=== PATIENT | female | born 1955 | race Caucasian/White ===

== ENCOUNTER 2025-04-10 08:05 | Inpatient (IN) | payer MEDICARE, BC ==
[~2025-04-10] VITALS: Ht 160 cm; Wt 67.7 kg
--- NOTE | 2025-04-10 08:19 | ELECTROCARDIOGRAPH REPORT ---
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
[2025-04-10 08:27] LABS: BASOPHILS % (AUTO) 0.6 % (0-1); EOSINOPHILS % (AUTO) 0 % (0-6); HEMATOCRIT 32.6 % (35.0-45.0); HEMOGLOBIN 10.7 g/dl (12.0-16.0); LYMPHOCYTES # (AUTO) 0.8 X10'3 (1.1-4.8); LYMPHOCYTES % (AUTO) 14.8 % (21-51); MEAN CORPUSCULAR HEMOGLOBIN 29.9 PG (27.0-31.0); MEAN CORPUSCULAR HGB CONC 32.9 g/dL (33.0-36.5); MEAN CORPUSCULAR VOLUME 90.8 FL (78-98); MEAN PLATELET VOLUME 7.6 FL (7.4-10.4); MONOCYTES # (AUTO) 0.8 X10'3 (0-0.9); MONOCYTES % (AUTO) 14.8 % (2-12); NEUTROPHILS # (AUTO) 3.7 X10'3 (1.8-7.7); NEUTROPHILS % (AUTO) 69.8 % (42-75); PLATELET COUNT 406 X10'3 (140-440); RED BLOOD COUNT 3.59 X10'6 (4.20-5.60); RED CELL DISTRIBUTION WIDTH 14.1 % (11.5-14.5); WHITE BLOOD COUNT 5.4 X10'3 (4.5-11.0)
[2025-04-10 08:37] LABS: APTT 30 SECONDS (22-32); INR 1.1 INR
--- NOTE | 2025-04-10 08:38 | Physician Documentation ---
History of Present Illness ~ Chief Complaint: Stroke Alert Stated Complaint: STROKE SYMPTOMS Time Seen by MD: 08:16 HPI 69-year-old female history of remote Hodgkin's lymphoma, breast cancer status post resection, hypothyroidism presenting for blurry vision. She reports feeling generalized achiness and weakness. They are visiting for a wedding from [place]. She went yesterday to urgent care and tested positive for influenza. Throughout the day she started noticing droopiness in her left eye. She then awoke this morning with blurry vision and difficulty speaking. She also reports having shortness of breath over the last month. She was hospitalized in [place] 3 weeks ago where she had echocardiogram performed which she reports was normal Medication Reconciliation Allergies: Coded Allergies: No Known Allergies (Unverified , 04/10/25) Review of Systems Constitutional: Denies: fever Eyes: Reports: blurred vision, double vision Respiratory: Reports: shortness of breath; Denies: cough Physical Exam Vital Signs: Temperature: 98.3, Source: Temporal, Heart Rate: 100, Respiratory Rate: 18, BP: 145/66, Pulse Oximetry: 95, Weight: 56.820 General Appearance Well-appearing no distress resting comfortably in bed HEENT left eyelid droop left lateral nerve palsy Left-sided facial droop Mild dysarthria 5/5 bilateral upper lower extremities Awake alert oriented Visual villegas full to confrontation Pupils PERRLA Normal [id number] no dysmetria 5/5 bilateral upper and lower extremity strength No pronator drift Intact and equal bilateral facial and extremity sensation Negative Romberg Normal gait Well-appearing no distress resting comfortably in bed No JVD Moist mucous membranes Pulmonary clear to auscultation bilaterally Cardiac no murmur Abdomen is soft nontender Lower extremity no edema Awake alert oriented t-PA t-PA given w/in 2hrs?: No Reason t-PA not Given: Medical Contraindication (Considered tPA however she is out of window) Progress Progress Note Consulted with neurology they are recommending admission for MRI Consulted hospitalist Dr. Espinal who agrees with management plan and graciously accept for admission Results/Orders Reviewed/noted all lab results: Yes Results/Orders Orders - SHERRY FLAHERTY MD Monitor (04/10/25 08:11) 2 Large Bore Ivs (04/10/25 08:11) Chest,Single View (04/10/25 08:11) Accucheck (04/10/25 08:11) Ct Stroke Alert (04/10/25 09:41) BMP (04/10/25 08:11) Cta Neck/Head (04/10/25 09:41) [place] Prov.Neuro Consult (04/10/25 08:52) Ringers Solution, Lacted (Lactated Ringe (04/10/25 10:45) Page Hospitalist (04/10/25 10:43) Fill Out Med Reconciliation (04/10/25 10:43) TSH (04/10/25 08:17) Completed Orders - SHERRY FLAHERTY MD Cbc/Diff (04/10/25 08:11) Electrocardiogram (04/10/25 08:11) Chest,Single View (04/10/25 08:11) Ct Stroke Alert (04/10/25 09:41) PTT (04/10/25 08:11) Pt Inr (04/10/25 08:11) Cta Neck/Head (04/10/25 09:41) Vital Signs 04/10/25 04/10/25 04/10/25 04/10/25 08:08 08:18 09:02 09:03 Temp 98.3 Pulse 78 100 112 Resp 18 18 26 26 B/P (MAP) 142/54 145/66 (92) 163/97 Pulse Ox 98 95 93 Laboratory Tests Test 04/10/25 08:17 04/10/25 09:10 White Blood Count 5.4 Red Blood Count 3.59 L Hemoglobin 10.7 L Hematocrit 32.6 L Mean Corpuscular Volume 90.8 Mean Corpuscular Hemoglobin 29.9 Mean Corpuscular Hemoglobin Concent 32.9 L Red Cell Distribution Width 14.1 Platelet Count 406 Mean Platelet Volume 7.6 Neutrophils (%) (Auto) 69.8 Lymphocytes (%) (Auto) 14.8 L Monocytes (%) (Auto) 14.8 H Eosinophils (%) (Auto) 0 Basophils (%) (Auto) 0.6 Neutrophils # (Auto) 3.7 Lymphocytes # (Auto) 0.8 L Monocytes # (Auto) 0.8 Eosinophils # (Auto) 0.0 Basophils # (Auto) 0.0 CBC Comment Prothrombin Time 11.0 INR International Normalized Ratio 1.1 Activated Partial Thromboplast Time 30 Coagulation Comments Sodium Level 136 Potassium Level 3.6 Chloride Level 100 Carbon Dioxide Level 24.9 Anion Gap 11 Blood Urea Nitrogen 13 Creatinine 1.05 H Estimated GFR/1.73 m2 52 BUN/Creatinine Ratio 12.4 Glucose Level 94 Calcium Level 8.1 L Albumin 3.3 L Chemistry Comments Glucometer 102 EKG/XRAY/CT/US/VASC/MRI EKG : Additional Comment EKG independently interpreted by myself time 8:18 a.m. indication CVA normal sinus rhythm rate 100 normal axis normal intervals no ST or T-wave abnormality CT : Impression CT head independently interpreted by myself shows no intracranial hemorrhage Medical Decision Making Differential Dx:Considerations: Include: Baird's Palsey, CVA, Electrolyte imbalance Departure Disposition: ADMITTED INPATIENT Admitted to Inpatient Unit: to hospitalist Impression: Primary Impression: Cerebral infarction Qualified Codes: I63.9 - Cerebral infarction, unspecified Referrals: NO PRIMARY CARE PROVIDER (PCP) Critical Care Note Total Time (mins): 30 Critical Care Note The very real possibility of a deterioration of this patient's condition required the highest level of my preparedness for sudden, emergent intervention. I provided critical care services, which included medication orders, frequent reevaluations of the patient's condition and response to treatment, ordering and reviewing test results, and discussing the case with various consultants. Excludes time spent performing separately billable procedures. The critical care time associated with the care of the patient was 30 minutes in the management of acute CVA requiring consideration of tPA Signature Scribe Signature: na Attestation: SHERRY Barroso MD Apr 10, 2025 08:38
[2025-04-10 08:41] LABS: ALBUMIN 3.3 G/DL (3.4-5.0); ANION GAP 11 (8-16); BLOOD UREA NITROGEN 13 MG/DL (7-18); BUN/CREATININE RATIO 12.4 (10.0-20.0); CALCIUM 8.1 MG/DL (8.5-10.1); CHLORIDE 100 MMOL/L (99-107); CREATININE 1.05 MG/DL (0.40-0.90); GLUCOSE 94 MG/DL (70-104); POTASSIUM 3.6 MMOL/L (3.5-5.1); SODIUM 136 MMOL/L (135-145); TOTAL CARBON DIOXIDE 24.9 MMOL/L (24-32); eCRCL 42 ML/MIN; eGFR 52 ML/MIN
--- NOTE | 2025-04-10 10:01 | RADIOLOGY REPORT ---
CT CT STROKE ALERT INDICATION: Stroke Alert EXAM DATE: 04/10/2025 09:32 AM COMPARISON: None RADIATION DOSE: CTDIvol: 55 mGy, DLP: 1068 mGy*cm PROCEDURE: CT scans of the head were obtained from the vertex to the skull base. Sagittal and coronal reconstructions were provided. All CT scans at this medical facility are performed using dose modulation techniques as appropriate t o a performed exam including the following: Automated exposure control was utilized; adjustment of th e MA and/or KV according to patient size; and use of iterative reconstruction technique. FINDINGS: Left frontal lobe encephalomalacia likely from old infarct. There is sulcal and ventricula r prominence. The brain otherwise shows normal morphology and rodriguez-white matter differentiation, with out intracranial hemorrhage, extra-axial fluid collection, mass effect or acute large vessel infarct. The ventricles are normal in size. The basal cisterns are patent. The skull and visible facial bones are intact. The paranasal sinuses, mastoid air cells and middle ear cavities are well-aerated. The s oft tissues of the scalp are unremarkable. IMPRESSION: Left frontal lobe encephalomalacia likely from old infarct. No acute intracranial abnormality.
--- NOTE | 2025-04-10 10:17 | RADIOLOGY REPORT ---
INDICATION: cva EXAM DATE: 04/10/2025 09:36 AM COMPARISON: None TECHNIQUE: CTA head without and with intravenous contrast. CTA neck with intravenous contrast. 3D image postprocessing was performed on a dedicated workstation and images were used for interpretation and reporting. RADIATION DOSE: Angio: CTDIvol: 25 mGy, DLP: 250 mGy*cm FINDINGS: CTA head: There is normal enhancement of the visualized distal internal carotid, anterior and middle cerebral a rteries. There is a normal anterior communicating artery complex. There are bilateral posterior com municating arteries. The vertebral, basilar, cerebellar and posterior cerebral arteries are within n ormal limits. The early parenchymal enhancement is grossly unremarkable. The visualized intracrania l venous structures are grossly unremarkable. CTA neck: The visualized thoracic aortic arch and proximal great vessels are unremarkable. The left common, in ternal and external carotid arteries are within normal limits. The right common, internal and fountain helper al carotid arteries are within normal limits. The cervical segments of the right and left vertebral arteries are within normal limits. The limited visualized lung apices are clear. The surrounding so ft tissues and osseous structures are otherwise unremarkable. IMPRESSION: No evidence of hemodynamically significant intracranial stenosis, proximal occlusion or aneurysm. No evidence of hemodynamically significant cervical stenosis or dissection. CAROTID STENOSIS REFERENCE Distal internal carotid artery diameter as the denominator for stenosis measurement: MILD = <50% stenosis. MODERATE = 50-69% stenosis. SEVERE = 70-89% stenosis. CRITICAL = 90-99% stenosis. OCCLUDED = 100% stenosis.
[2025-04-10] MEDS ORDERED: magnesium Cl slow-release 64mg tablet PO PRN (11:10)
[2025-04-10] MEDS ORDERED: ondansetron/PF 4mg/2ml inj IV PRN (11:10)
[2025-04-10] MEDS ORDERED: magnesium sulf-water 2g/50mL 50 ML IV PRN (11:10)
[2025-04-10] MEDS ORDERED: potassium Cl 40MEQ/1/2NS 520ml 520 ML IV PRN (11:10)
[2025-04-10] MEDS ORDERED: acetaminophen 325mg tablet PO PRN (11:10)
[2025-04-10] MEDS ORDERED: potassium Cl 20 mEq SR tablet PO PRN ×2 (11:10)
[2025-04-10] MEDS ORDERED: magnesium sulf-water 4G/100mL 100 ML IV PRN (11:10)
[2025-04-10] MEDS: ringers solution, lacted 1,000 ML IV ONE (11:12)
[2025-04-10] MEDS: acetaminophen 325mg tablet PO PRN (11:23)
[2025-04-10 11:29] LABS: THYROID STIMULATING HORMONE 0.22 ulU/ml (0.34-4.50)
[2025-04-10] MEDS: normal saline 1000ml 1,000 ML IV SCH (12:06)
--- NOTE | 2025-04-10 13:09 | RADIOLOGY REPORT ---
CLINICAL INFORMATION: 69 years old, Female; Stroke Alert. TECHNIQUE: Single AP portable chest radiograph was obtained. COMPARISON: None FINDINGS: Lungs: Atelectasis in the lung bases. Mild interstitial opacities in the upper lobes. Possible scarri ng in the medial aspect of the right upper lobe. No dense focal consolidation. Cardiac: Heart size is within normal limits. Pulmonary vasculature: Unremarkable. Mediastinum/savannah: Ovoid calcification along the right side of the mediastinum near the hilar region, possible calcified pleural plaque or calcified lymph node. Bones: No acute osseous abnormality identified. Other: There are surgical clips in the right chest wall and axillary region. IMPRESSION: 1. Interstitial opacities in the upper lobes, may be chronic. No focal consolidation. 2. Possible scarring of the medial aspect of the right upper lobe and along the right side of the med iastinum near the hilar region, possible calcified pleural plaque or calcified lymph node. 3. Additional findings as described above.
--- NOTE | 2025-04-10 13:28 | VASCULAR REPORT ---
Carotid Duplex Date: 04/10/2025 11:25 AM Clinical History: Left-sided facial droop. Comparison: None Technique: Duplex Doppler evaluation of the extracranial carotid and vertebral arteries including col or Doppler and spectral/pulsed waveform analysis was performed. Findings: RIGHT SIDE: The peak systolic velocities are 118 cm/s in the distal CCA and 130 cm/s in the proximal ICA.The ICA/ CCA ratio is 1.10. The external carotid artery is patent with peak systolic velocity of 143 cm/s proximally. There is appropriate antegrade flow in the right vertebral artery. Subclavian artery is patent with peak systolic velocity of 180 cm/sec LEFT SIDE: The peak systolic velocities are 146 cm/s in the distal CCA and 123cm/s in the proximal ICA. The IC A/CCA ratio is 0.89. The external carotid artery is patent with peak systolic velocity of 130 cm/s proximally. Subclavian artery is patent with peak systolic velocity of 183 cm/sec There is appropriate antegrade flow in the left vertebral artery. IMPRESSION: No hemodynamically significant stenosis noted in the right carotid system. No hemodynamically significant stenosis noted in the left carotid system. Reference: Radiology 2003; 229:[id number]
--- NOTE | 2025-04-10 13:35 | RADIOLOGY REPORT ---
PROCEDURE: MR MRI HEAD INDICATION: stroke like symptoms EXAM DATE: 04/10/2025 12:32 PM COMPARISON: None TECHNIQUE: MRI of the brain without intravenous contrast. FINDINGS: Diffusion weighted images of the brain demonstrate no evidence of acute infarction. There is no evidence of acute intracranial hemorrhage, extra-axial collection, mass effect, midline s hift, herniation or hydrocephalus. The ventricles, sulci and cisterns appear age appropriate. Old left frontal infarct. Mild changes of chronic microvascular ischemic disease. There are no signal abnormalities on the susceptibility weighted sequences. The major vascular flow voids are present. The visualized paranasal sinuses and mastoid air cells are clear. The surrounding soft tissues and o sseous structures are unremarkable. IMPRESSION: 1. No evidence of acute infarction, intracranial hemorrhage, mass effect or hydrocephalus. Old left f rontal infarct. Mild changes of chronic microvascular ischemic disease. HS:Y
[2025-04-10] MEDS ORDERED: ZOLP12.570 PO (14:04)
[2025-04-10] MEDS ORDERED: LEVO112T5 PO (14:04)
[2025-04-10] MEDS ORDERED: OMEP40CA21 PO (14:04)
[2025-04-10] MEDS ORDERED: SERT-434 PO (14:04)
[2025-04-10 14:13] VITALS: BP 137/62; PULSE 91; RESP 18; TEMP 98.1; O2SAT 95
--- NOTE | 2025-04-10 15:58 | [facility] CONSULT REPORT ---
[facility] Procedure Note [facility] Procedure Note Consult [facility] Note # Demographics Consult Type: Acute Stroke Level 2 (4.5-24 hrs) Patient Location: Emergency Room First Name: fernando Last Name: gladis Date of : 1955 Age: 69 Gender: Female Facility: [facility] Time of Initial Page (): 04/10/2025 10:44 Time of Return Call (): 04/10/2025 10:45 # HPI History: 69 y/o F with recent flu illness woke up this morning with slurred speech, Lt ptosis and Lt CN 6 palsy. # Scores Time of exam and NIHSS (): 04/10/2025 11:17 Level of Consciousness 1a: [0] = Alert; keenly responsive LOC Questions 1b: [0] = Answers both questions correctly LOC Commands 1c: [0] = Performs both tasks correctly Best Gaze 2: [1] = Partial gaze palsy Visual 3: [0] = No visual loss Facial Palsy 4: [0] = Normal symmetrical movements Motor Arm Left 5a: [0] = No drift Motor Arm Right 5b: [0] = No drift Motor Leg Left 6a: [0] = No drift Motor Leg Right 6b: [0] = No drift Limb Ataxia 7: [0] = Absent Sensory 8: [0] = Normal Best Language 9: [0] = No aphasia Dysarthria 10: [1] = Cjhj-yj-gqkjhhxo dysarthria Extinction and Inattention 11: [0] = No abnormality NIHSS Total: 2 # Data CTA Head: no large vessel occlusion CTA Neck: patent vessels MRI: no acute ischemia # Assessment Impression: GBS variant with bulbar symptoms # Plan Thrombolytic/Intervention: NOT IV Thrombolysis or IA Intervention candidate Thrombolytic Exclusion: > 4.5 hours Intraarterial Exclusion: - no large vessel occlusion (LVO) Thrombolytic/Intraarterial Exclusion: - IV thrombolytic and IA intervention considered but not recommended as this patient's symptoms are not clinically consistent with an assumed diagnosis of stroke Therapy/Evaluation: - speech/swallow consultation Medication: Start IVIG 400mg/kg/day x 5 days DVT Prophylaxis: - enoxaprin (Lovenox) 40 mg subcutaneously daily Other: - If patient has any neurological deterioration please call me back immediately # Logistics Attestation of consult completion: The patient is located at: [facility]. Facility staff participated in the visit. I performed this telemedicine visit from my offsite office utilizing interactive 2 way audio and visual telecommunication technology. Total time spent in telemedicine encounter: I spent 30 minutes reviewing clinical data and/or imaging, obtaining history, examining the patient, communicating with the onsite care team, and in preparation of this report. # Demographics First Name: fernando Last Name: gladis Facility: [facility] Electronically signed at 04/10/2025 15:58 ([place] Time) by Melissa Reyes DO Neuro Consult Order placed for: Yes SAMIR REYES DO Apr 10, 2025 15:58
[2025-04-10 18:26] VITALS: BP 141/58; PULSE 93; RESP 17; TEMP 98; O2SAT 96
[2025-04-10] MEDS: heparin, porcine 5000 units/ml vial SQ SCH (20:26)
--- NOTE | 2025-04-10 20:32 | HISTORY AND PHYSICAL ---
History & Physical Providers to CC ~ History of Present Illness Reason for Admit\Complaint: Stroke-like symptoms History of Present Illness 69-year-old female history of remote Hodgkin's lymphoma, breast cancer status post resection, hypothyroidism presenting for blurry vision. She reports feeling generalized achiness and weakness. They are visiting for a wedding from [place]. She went yesterday to urgent care and tested positive for influenza. Throughout the day she started noticing droopiness in her left eye. She then awoke this morning with blurry vision and difficulty speaking. Her who was present at bedside feels that her speech is not clear. She also noticed that her right hand 3rd and 4th finger she is unable to open after making the fist. Feels that she has double vision. Denied any recent change in the medication denied use of any alcohol tobacco or any recreational drugs. she is able to ambulate She also reports having shortness of breath over the last month. She was hospitalized in [place] 3 weeks ago where she had echocardiogram performed which she reports was normal. Allergies: Coded Allergies: No Known Allergies (Unverified , 04/10/25) Home Medications Home Medications Active Reported Zolpidem Tartrate 12.5 Mg Tab.mphase 1 Tab PO HS PRN Sertraline HCl 100 Mg Tablet 1 Tab PO DAILY Prilosec (Omeprazole) 40 Mg Capsule 1 Cap PO DAILY Levothyroxine Sodium 112 Mcg Tablet 1 Tab PO DAILY Past Medical History Past Medical History Hodgkin's lymphoma, breast cancer status post resection, hypothyroidism Past Surgical History Surgical History Comment History of breast reduction due to cancer Past Social History Social History Comment denied use of any alcohol tobacco or any recreational drugs. She is able to walk [facility] Review of system as mentioned above in HPI rest of the review of system unremarkable Exam Vitals: Vital Signs Date Time Temp Pulse Resp B/P (MAP) Pulse Ox O2 Delivery O2 Flow Rate FiO2 04/10/25 18:30 96 04/10/25 18:26 98.0 17 141/58 (85) 96 Room Air General: General-patient not in any acute distress, alert awake oriented, chronically ill-appearing/age-appropriate, HEENT-atraumatic normocephalic, neck supple without elevated JVD, no thyromegaly or carotid bruit. No lymphadenopathy bilaterally. Eyes-no icterus or pallor seen in eyes. No signs of double vision, drooping of left eyelid noticed. Chest-clear to auscultation bilaterally, breathing nonlabored no tachypnea, no wheezing, no crepitation, no crackles. Heart-S1-S2 normal, regular heart rate no murmur Abdomen bowel sounds positive on auscultation, soft nondistended nontender no guarding, no rigidity Skin no active skin rash Neurology-grossly intact, nonfocal alert awake oriented, difficulty in speaking. Signs of trigger finger noticed over 3rd and 4th right hand. drooping of left eyelid noticed. Extremity- no pedal edema able to move all 4 extremities Psychiatry - patient is not confused or agitated cooperated during physical examination Diagnostic Data Last Recorded Lab Results: 04/10/25 0817 04/10/25 0817 Diagnostic Data: Laboratory Tests Test 04/10/25 08:17 Prothrombin Time 11.0 SECONDS (9.0-12.0) INR International Normalized Ratio 1.1 INR Activated Partial Thromboplast Time 30 SECONDS (22-32) Coagulation Comments Advance Care Planning Advanced Care plannin - 30 Minutes Additional Plan 69-year-old female history of remote Hodgkin's lymphoma, breast cancer status post resection, hypothyroidism presenting for blurry vision. She reports feeling generalized achiness and weakness. Patient is admitted for stroke-like symptoms which include drooping of left eyelid, double vision and difficulty in speaking and right 3rd and 4th finger weakness. Patient had tele neurology consultation done and we will follow the recommendation. Further workup ordered for possible stroke. We will do home medication reconciliation once updated in electronic record system. Patient's other comorbidities include hypothyroidism, good, depression, insomnia. Code status discussed with the patient patient wishes to stay limited code she is okay with chest compression but she does not want any intubation. Patient was present at bedside. Patient's current condition is guarded further management depending on outcome of the results and response to treatment. We will continue to follow patient in a.m. Date of Service: Apr 10, 2025 Billing Provider: SINCERE JOSEPH MD Common Visit Codes: 76006-IXVVOIE INP/OBS CARE (HIGH) Secondary Visit Codes: 04276-RRCBTEFD CARE PLAN 30 MINUTES SINCERE JOSEPH MD Apr 10, 2025 20:32
[2025-04-10 22:00] VITALS: BP 127/61; PULSE 110; RESP 16; TEMP 98.3; O2SAT 94
[2025-04-11 02:00] VITALS: BP 142/66; PULSE 106; RESP 16; TEMP 100.9; O2SAT 90
[2025-04-11 05:24] LABS: BASOPHILS # (AUTO) 0.1 X10'3 (0-0.2); EOSINOPHILS % (AUTO) 0 % (0-6); LYMPHOCYTES # (AUTO) 1.7 X10'3 (1.1-4.8); MONOCYTES # (AUTO) 0.7 X10'3 (0-0.9); RED CELL DISTRIBUTION WIDTH 14.3 % (11.5-14.5); WHITE BLOOD COUNT 7.1 X10'3 (4.5-11.0)
[2025-04-11 05:26] LABS: HEMATOCRIT 34.3 % (35.0-45.0); LYMPHOCYTES % (AUTO) 24.4 % (21-51); MEAN CORPUSCULAR HEMOGLOBIN 29.5 PG (27.0-31.0); MEAN CORPUSCULAR HGB CONC 32.1 g/dL (33.0-36.5); MEAN CORPUSCULAR VOLUME 91.9 FL (78-98); MEAN PLATELET VOLUME 8.2 FL (7.4-10.4); MONOCYTES % (AUTO) 9.7 % (2-12); NEUTROPHILS # (AUTO) 4.6 X10'3 (1.8-7.7); NEUTROPHILS % (AUTO) 64.9 % (42-75); PLATELET COUNT 394 X10'3 (140-440); RED BLOOD COUNT 3.73 X10'6 (4.20-5.60)
[2025-04-11 05:44] LABS: HEMOGLOBIN A1C 5.1 % (4.5-6.2)
[2025-04-11 05:52] LABS: ALANINE AMINOTRANSFERASE 26 U/L (12-78); ALBUMIN/GLOBULIN RATIO 0.8 (1.1-1.5); ALKALINE PHOSPHATASE 71 IU/L (46-116); ANION GAP 11 (8-16); ASPARTATE AMINO TRANSFERASE 32 U/L (10-37); BILIRUBIN,TOTAL 0.4 MG/DL (0.1-1.0); BLOOD UREA NITROGEN 13 MG/DL (7-18); BUN/CREATININE RATIO 14.1 (10.0-20.0); CALCIUM 8.1 MG/DL (8.5-10.1); CHLORIDE 106 MMOL/L (99-107); CHOLESTEROL 180 MG/DL (0-200); CREATININE 0.92 MG/DL (0.40-0.90); GLUCOSE 69 MG/DL (70-104); HDL CHOLESTEROL 60 MG/DL (35-60); LDL CHOLESTEROL 88 MG/DL (50-100); POTASSIUM 3.8 MMOL/L (3.5-5.1); SODIUM 144 MMOL/L (135-145); TOTAL CARBON DIOXIDE 27.1 MMOL/L (24-32); TOTAL PROTEIN 6.9 G/DL (6.4-8.2); TRIGLYCERIDES 137 MG/DL (20-135); eCRCL 48 ML/MIN; eGFR 61 ML/MIN
[2025-04-11 06:00] VITALS: BP 136/69; PULSE 94; RESP 15; TEMP 98.9; O2SAT 94
[2025-04-11 10:00] VITALS: BP 145/68; PULSE 101; RESP 18; TEMP 98.1; O2SAT 95
[2025-04-11] MEDS: aspirin 81mg, enteric-coated 1 TAB TABLET.DR PO SCH (10:01)
[2025-04-11] MEDS: clopidogrel 75mg tablet PO SCH (10:01)
[2025-04-11] MEDS: atorvastatin 20mg tablet PO SCH (10:01)
[2025-04-11 14:00] VITALS: BP 132/63; PULSE 105; RESP 15; TEMP 99.6; O2SAT 97
[2025-04-11 18:00] VITALS: BP 122/101; PULSE 103; RESP 16; TEMP 98.5; O2SAT 98
--- NOTE | 2025-04-11 18:20 | CARDIOLOGY REPORT ---
APPROVED REPORT EXAM: Comprehensive 2D, Doppler, and color-flow Echocardiogram. Patient Location: [address] Heart Rate: 94 bpm Rhythm: SINUS Indications CEREBRAL VASCULAR ACCIDENT CONTRAST NOT ORDERED HODGKINS LYMPHOMA Assessment Manager: OUT OF AREA Previous echo: NONE 2D Dimensions RVDd 3.6 cm IVSd 0.9 (0.7-1.1cm) LVDd 4.2 cm PWd 0.8 (0.7-1.1cm) IVSs 1.2 (0.8-1.2cm) LVDs 3.0 (2.5-4.0cm) Aortic Root(2D) 2.4 cm PWs 1.4 (0.8-1.2cm) LVOT Diameter 1.91 (1.8-2.4cm) LVEF(%) 54.4 (>50%) IVC 17.61 mmFS (%) 27.9 % SV 42.2 ml CO 3.7 L/min M-Mode Dimensions Left Atrium(MM) 3.84 (2.5-4.0cm) IVSd 0.96 (0.7-1.1cm) LVDd 4.10 (4.0-5.6cm) Aortic Root 2.31 (2.2-3.7cm) PWd 0.99 (0.7-1.1cm) IVSs 1.12 cm MV EPSS 1.0 (<0.5cm) LVDs 2.88 (2.0-3.8cm) FS (%) 30 % PWs 1.19 cm ESV(Teich) 31.8 ml LVEF(%) 57 (>50%) Aortic Valve AoV Peak Mino. 311.7 cm/s AoV VTI 62.3 cm AO Peak GR. 38.9 mmHg AO Mean GR. 21 mmHg LVOT VTI 21.65 cm LVOT Peak Mino. 116.5 cm/s CATIE(VTI)/BSA 1.20 cm2/m2 CATIE (VTI) 1.20 cm2 Mitral Valve MV E Velocity 162.0 cm/s MV Peak Gr. 11 mmHg MV DECEL TIME 228 ms MV A Velocity 129.3 cm/s MV PHT 68 ms E/A Ratio 1.3 MVA (PHT) 3.24 cm2 MV SQxu205.0 cm/s Tricuspid Valve TR P. Velocity 369 cm/s RAP ESTIMATE 10 mmHg TR Peak Gr. 54 mmHg RVSP 64 mmHg LEFT VENTRICLE Normal LV size and wall thickness. Overall systolic function is normal. LVEF is 60-65%. RIGHT VENTRICLE RV is mildly dilated in size with normal function. ATRIA The left atrium size is normal. AORTIC VALVE Trileaflet AV appears moderately sclerotic with moderate stenosis. CATIE is measured at 1.2 cmsq. Peak / mean gradients of 39/21 mmHG. Peak velocity is measured at 311 cm/s. Trace insufficiency. MITRAL VALVE Mild MV annular calcification without stenosis. Trace regurgitation. TRICUSPID VALVE TV appears structurally normal with mild regurgitation. PULMONIC VALVE Normal PV without stenosis, physiologic insufficiency. GREAT VESSELS The aortic root is normal in size. IVC is normal in size and collapses greater than 50% with inspirat ion. PERICARDIUM Normal pericardium. No effusion. Other Information Study Quality: Adequate due to patient implants. Conclusion Normal LV size and wall thickness. Overall systolic function is normal. LVEF is 60-65%. RV is mildly dilated in size with normal function. The left atrium size is normal. Trileaflet AV appears moderately sclerotic with moderate stenosis. CATIE is measured at 1.2 cmsq. Peak / mean gradients of 39/21 mmHG. Peak velocity is measured at 311 cm/s. Trace insufficiency. Mild MV annular calcification without stenosis. Trace regurgitation. TV appears structurally normal with mild regurgitation. Normal pericardium. No effusion.
[2025-04-11] MEDS ORDERED: RHO(D) immune globulin 1,500 units (300 MCG) syringe IM ONE (18:50)
--- NOTE | 2025-04-11 18:57 | PROGRESS NOTE ---
Daily Progress Note Providers to CC ~ Antibiotic Timeout Antibiotic Ordered?: No Subjective Patient was seen in her room all labs and diagnostic workup discussed with the patient in detail in visit today. All questions and concerns answered to the best of my professional medical knowledge. Patient is still having drooping of the left eyelid and difficulty in speaking and feeling weak. Patient needs PT evaluation in a.m.. I discussed patient's case with infectious disease specialist on-call doctor corey and she recommended to talk to pharmacist regarding immuno globulin availability in the hospital. 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 I spoke to pharmacist in [facility] regarding immune no globulin availability and ordered placed Objective Vital Signs Date Time Temp Pulse Resp B/P (MAP) Pulse Ox O2 Delivery O2 Flow Rate FiO2 04/11/25 18:30 100 04/11/25 14:00 99.6 15 132/63 (86) 97 Room Air Result Diagram: 04/11/25 0454 04/11/25 0454 General-patient not in any acute distress, alert awake oriented, chronically ill-appearing/age-appropriate, HEENT-atraumatic normocephalic, neck supple without elevated JVD, no thyromegaly or carotid bruit. No lymphadenopathy bilaterally. Eyes-no icterus or pallor seen in eyes. No signs of double vision, drooping of left eyelid noticed. Chest-clear to auscultation bilaterally, breathing nonlabored no tachypnea, no wheezing, no crepitation, no crackles. Heart-S1-S2 normal, regular heart rate no murmur Abdomen bowel sounds positive on auscultation, soft nondistended nontender no guarding, no rigidity Skin no active skin rash Neurology-grossly intact, nonfocal alert awake oriented, difficulty in speaking. Signs of trigger finger noticed over 3rd and 4th right hand. drooping of left eyelid noticed. Extremity- no pedal edema able to move all 4 extremities Psychiatry - patient is not confused or agitated cooperated during physical examination Coagulation Studies Laboratory Tests Test 04/10/25 08:17 Prothrombin Time 11.0 SECONDS (9.0-12.0) INR International Normalized Ratio 1.1 INR Activated Partial Thromboplast Time 30 SECONDS (22-32) Coagulation Comments Problem\Assessment\Plan 69-year-old female history of remote Hodgkin's lymphoma, breast cancer status post resection, hypothyroidism presenting for blurry vision. She reports feeling generalized achiness and weakness. Patient is admitted for stroke-like symptoms which include drooping of left eyelid, double vision and difficulty in speaking and right 3rd and 4th finger weakness. Patient had tele neurology consultation done and we will follow the recommendation. Further workup ordered for possible stroke was unremarkable. Patient is still having drooping of the left eyelid and difficulty in speaking and feeling weak. Patient needs PT evaluation in a.m.. I discussed patient's case with infectious disease specialist on-call doctor corey and she recommended to talk to pharmacist regarding immuno globulin availability in the hospital. 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 I spoke to pharmacist in [facility] regarding immune no globulin availability and ordered placed # other comorbidities include hypothyroidism, GERD depression, insomnia- home medication reconciliation once updated in electronic record system. #Code status discussed with the patient patient wishes to stay limited code she is okay with chest compression but she does not want any intubation. Patient was present at bedside. Patient's current condition is guarded further management depending on outcome of the results and response to treatment. We will continue to follow patient in a.m.Patient was seen in her room all labs and diagnostic workup discussed with the patient in detail in visit today. All questions and concerns answered to the best of my professional medical knowledge. Date of Service: Apr 11, 2025 Billing Provider: SINCERE JOSEPH MD Common Visit Codes: [id number] INP/OBS CARE(HIGH) SINCERE JOSEPH MD Apr 11, 2025 18:57
[2025-04-11] MEDS ORDERED: zolpidem 5mg tablet PO PRN (19:00)
[2025-04-11] MEDS: guaiFENesin 200 MG/10 ML oral syrup UD cup PO PRN (21:07)
[2025-04-11 22:00] VITALS: BP 130/56; PULSE 96; RESP 13; TEMP 97.7; O2SAT 97
[2025-04-11] MEDS: IMMUNE GLOBULIN IV SCH (22:45)
[2025-04-11] MEDS: PIGGYBACK IV SCH (22:45)
[2025-04-12] VITALS (7 sets, daily range): BP systolic 113–134; BP diastolic 56–63; PULSE 85–97; RESP 13–18; TEMP 97.9–98.4; O2SAT 93–98
[2025-04-12 04:52] LABS: BASOPHILS % (AUTO) 0.5 % (0-1); EOSINOPHILS % (AUTO) 0.2 % (0-6); HEMATOCRIT 32.1 % (35.0-45.0); HEMOGLOBIN 10.8 g/dl (12.0-16.0); LYMPHOCYTES # (AUTO) 1.4 X10'3 (1.1-4.8); LYMPHOCYTES % (AUTO) 26.4 % (21-51); MEAN CORPUSCULAR HEMOGLOBIN 30.2 PG (27.0-31.0); MEAN CORPUSCULAR HGB CONC 33.7 g/dL (33.0-36.5); MEAN CORPUSCULAR VOLUME 89.7 FL (78-98); MEAN PLATELET VOLUME 7.9 FL (7.4-10.4); MONOCYTES # (AUTO) 0.7 X10'3 (0-0.9); MONOCYTES % (AUTO) 12.7 % (2-12); NEUTROPHILS # (AUTO) 3.1 X10'3 (1.8-7.7); NEUTROPHILS % (AUTO) 60.2 % (42-75); PLATELET COUNT 333 X10'3 (140-440); RED BLOOD COUNT 3.58 X10'6 (4.20-5.60); RED CELL DISTRIBUTION WIDTH 13.8 % (11.5-14.5); WHITE BLOOD COUNT 5.2 X10'3 (4.5-11.0)
[2025-04-12 05:13] LABS: ALANINE AMINOTRANSFERASE 21 U/L (12-78); ALBUMIN 2.9 G/DL (3.4-5.0); ALBUMIN/GLOBULIN RATIO 0.7 (1.1-1.5); ALKALINE PHOSPHATASE 63 IU/L (46-116); ANION GAP 8 (8-16); ASPARTATE AMINO TRANSFERASE 26 U/L (10-37); BILIRUBIN,TOTAL 0.3 MG/DL (0.1-1.0); BLOOD UREA NITROGEN 15 MG/DL (7-18); BUN/CREATININE RATIO 18.5 (10.0-20.0); CALCIUM 8.2 MG/DL (8.5-10.1); CHLORIDE 104 MMOL/L (99-107); CREATININE 0.81 MG/DL (0.40-0.90); GLUCOSE 83 MG/DL (70-104); POTASSIUM 3.7 MMOL/L (3.5-5.1); SODIUM 140 MMOL/L (135-145); TOTAL CARBON DIOXIDE 27.9 MMOL/L (24-32); eCRCL 55 ML/MIN; eGFR 70 ML/MIN
[2025-04-12] MEDS: levoTHYROXINE 112mcg tablet PO SCH (06:50)
[2025-04-12] MEDS: pantoprazole 40mg Tablet.DR PO SCH (06:51)
[2025-04-12] MEDS: sertraline 50mg tablet PO SCH (07:06)
--- NOTE | 2025-04-12 16:20 | [facility] CONSULT REPORT ---
[facility] Procedure Note [facility] Procedure Note Consult [facility] Note # Demographics Consult Type: General Neurology Patient Location: Inpatient First Name: Julieth Last Name: Antonietta Date of : 1955 Age: 69 Gender: Female Facility: [facility] Time of Initial Page (): 04/12/2025 11:06 Time of Return Call (): 04/12/2025 11:07 # HPI History: 69yof with recent flu illness who presented with dysarthria, L ptosis, diplopia and L CN palsy. She started having diplopia about a week ago and then has slowly progressed to these symptoms. She's got 1 dose of IVIG and feels significant improved. She appears areflexic on exam. # Scores Time of exam and NIHSS (): 04/12/2025 13:58 Level of Consciousness 1a: [0] = Alert; keenly responsive LOC Questions 1b: [0] = Answers both questions correctly LOC Commands 1c: [0] = Performs both tasks correctly Best Gaze 2: [0] = Normal Visual 3: [0] = No visual loss Facial Palsy 4: [0] = Normal symmetrical movements Motor Arm Left 5a: [0] = No drift Motor Arm Right 5b: [0] = No drift Motor Leg Left 6a: [0] = No drift Motor Leg Right 6b: [0] = No drift Limb Ataxia 7: [0] = Absent Sensory 8: [0] = Normal Best Language 9: [0] = No aphasia Dysarthria 10: [1] = Rnca-qf-kzivcelq dysarthria Extinction and Inattention 11: [0] = No abnormality NIHSS Total: 1 # Plan Imaging: (urgency: routine): MRV Diagnostic Test: - Lumbar puncture: cell count, protein, glucose, gram stain, and culture Anti-GQ1b Medication: Continue doses of IVIG Other: - If patient has any neurological deterioration please call me back immediately - neurology referral as outpatient # Logistics Attestation of consult completion: The patient is located at: [facility]. Facility staff participated in the visit. I performed this telemedicine visit from my offsite office utilizing interactive 2 way audio and visual telecommunication technology. Total time spent in telemedicine encounter: I spent 23 minutes reviewing clinical data and/or imaging, obtaining history, examining the patient, c ommunicating with the onsite care team, and in preparation of this report. # Demographics First Name: Julieth Last Name: Antonietta Facility: [facility] Neuro Consult Order placed for: Yes HEIDI VASQUEZ MD Apr 12, 2025 16:20
--- NOTE | 2025-04-12 20:20 | PROGRESS NOTE ---
Daily Progress Note Providers to CC ~ Antibiotic Timeout Antibiotic Ordered?: No Subjective Patient was seen in presence of her daughter and nursing staff today. Patient's speech is already improved since yesterday. She still has drooping of left eye . Patient is able to ambulate patient does have reflexes. I discussed the case with tele Neurology specialist Dr. Napier ) in detail . She is still recommended to continue IV IG therapy . Also recommended Lumbar puncture: cell count, protein, glucose, gram stain, and culture Anti-GQ1b testing . Patient's current updated medical condition and care plan discussed with patient and her daughter in visit Objective Vital Signs Date Time Temp Pulse Resp B/P (MAP) Pulse Ox O2 Delivery O2 Flow Rate FiO2 04/12/25 18:30 91 04/12/25 18:00 98.3 16 113/60 (77) 98 Room Air Result Diagram: 04/12/25 0433 04/12/25 0433 General-patient not in any acute distress, alert awake oriented, chronically ill-appearing/age-appropriate, HEENT-atraumatic normocephalic, neck supple without elevated JVD, no thyromegaly or carotid bruit. No lymphadenopathy bilaterally. Eyes-no icterus or pallor seen in eyes. No signs of double vision, drooping of left eyelid noticed. Chest-clear to auscultation bilaterally, breathing nonlabored no tachypnea, no wheezing, no crepitation, no crackles. Heart-S1-S2 normal, regular heart rate no murmur Abdomen bowel sounds positive on auscultation, soft nondistended nontender no guarding, no rigidity Skin no active skin rash Neurology-grossly intact, nonfocal alert awake oriented, difficulty in speaking. Signs of trigger finger noticed over 3rd and 4th right hand. drooping of left eyelid noticed. Extremity- no pedal edema able to move all 4 extremities. Patient is able to ambulate without any gait ataxia Psychiatry - patient is not confused or agitated cooperated during physical examination Coagulation Studies Laboratory Tests Test 04/10/25 08:17 Prothrombin Time 11.0 SECONDS (9.0-12.0) INR International Normalized Ratio 1.1 INR Activated Partial Thromboplast Time 30 SECONDS (22-32) Coagulation Comments Problem\Assessment\Plan 69-year-old female history of remote Hodgkin's lymphoma, breast cancer status post resection, hypothyroidism presenting for blurry vision. She reports feeling generalized achiness and weakness. Patient is admitted for stroke-like symptoms which include drooping of left eyelid, double vision and difficulty in speaking and right 3rd and 4th finger weakness. Patient had tele neurology consultation done and we will follow the recommendation. Further workup ordered for possible stroke was unremarkable. 04/11/25-Patient is still having drooping of the left eyelid and difficulty in speaking and feeling weak. Patient needs PT evaluation in a.m.. I discussed patient's case with infectious disease specialist on-call doctor corey and she recommended to talk to pharmacist regarding immuno globulin availability in the hospital. 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 I spoke to pharmacist in [facility] regarding immune no globulin availability and ordered placed 04/12/25- Patient was seen in presence of her daughter and nursing staff today. Patient's speech is already improved since yesterday. She still has drooping of left eye . Patient is able to ambulate patient does have reflexes. I discussed the case with tele Neurology specialist Dr. Napier ) in detail . She is still recommended to continue IV IG therapy . Also recommended Lumbar puncture: cell count, protein, glucose, gram stain, and culture Anti-GQ1b testing . Patient's current updated medical condition and care plan discussed with patient and her daughter in visit # other comorbidities include hypothyroidism, GERD depression, insomnia- home medication reconciliation once updated in electronic record system. #Code status discussed with the patient patient wishes to stay limited code she is okay with chest compression but she does not want any intubation. Patient's current condition is guarded further management depending on outcome of the results and response to treatment. We will continue to follow patient in a.m.Patient was seen in her room all labs and diagnostic workup discussed with the patient in detail in visit today. All questions and concerns answered to the best of my professional medical knowledge.Patients daughter was present at bedside. Date of Service: Apr 12, 2025 Billing Provider: SINCERE JOSEPH MD Common Visit Codes: [id number] INP/OBS CARE(HIGH) SINCERE JOSEPH MD Apr 12, 2025 20:20
[2025-04-12] MEDS: zolpidem 5mg tablet PO PRN (21:12)
[2025-04-13 02:00] VITALS: BP 127/55; PULSE 81; RESP 16; TEMP 97.6; O2SAT 95
[2025-04-13 04:54] LABS: BASOPHILS % (AUTO) 0.8 % (0-1); EOSINOPHILS % (AUTO) 1.4 % (0-6); HEMATOCRIT 32.2 % (35.0-45.0); HEMOGLOBIN 10.7 g/dl (12.0-16.0); LYMPHOCYTES # (AUTO) 1.5 X10'3 (1.1-4.8); LYMPHOCYTES % (AUTO) 51.9 % (21-51); MEAN CORPUSCULAR HEMOGLOBIN 29.9 PG (27.0-31.0); MEAN CORPUSCULAR HGB CONC 33.2 g/dL (33.0-36.5); MEAN CORPUSCULAR VOLUME 89.9 FL (78-98); MEAN PLATELET VOLUME 7.8 FL (7.4-10.4); MONOCYTES # (AUTO) 0.5 X10'3 (0-0.9); MONOCYTES % (AUTO) 18.5 % (2-12); NEUTROPHILS # (AUTO) 0.8 X10'3 (1.8-7.7); NEUTROPHILS % (AUTO) 27.4 % (42-75); PLATELET COUNT 307 X10'3 (140-440); RED BLOOD COUNT 3.59 X10'6 (4.20-5.60); WHITE BLOOD COUNT 2.8 X10'3 (4.5-11.0)
[2025-04-13 05:18] LABS: ALANINE AMINOTRANSFERASE 27 U/L (12-78); ALBUMIN 2.7 G/DL (3.4-5.0); ALBUMIN/GLOBULIN RATIO 0.6 (1.1-1.5); ALKALINE PHOSPHATASE 59 IU/L (46-116); ANION GAP 9 (8-16); ASPARTATE AMINO TRANSFERASE 35 U/L (10-37); BILIRUBIN,TOTAL 0.3 MG/DL (0.1-1.0); BLOOD UREA NITROGEN 14 MG/DL (7-18); BUN/CREATININE RATIO 15.9 (10.0-20.0); CALCIUM 7.9 MG/DL (8.5-10.1); CHLORIDE 107 MMOL/L (99-107); CREATININE 0.88 MG/DL (0.40-0.90); GLUCOSE 89 MG/DL (70-104); POTASSIUM 3.9 MMOL/L (3.5-5.1); SODIUM 143 MMOL/L (135-145); TOTAL CARBON DIOXIDE 27.3 MMOL/L (24-32); TOTAL PROTEIN 7.1 G/DL (6.4-8.2); eCRCL 51 ML/MIN; eGFR 64 ML/MIN
[2025-04-13 05:22] LABS: TOTAL CELLS COUNTED 100
[2025-04-13 05:23] LABS: BURR CELLS 1+; PLATELET ESTIMATE NORMAL
[2025-04-13 06:00] VITALS: BP 140/63; PULSE 82; RESP 15; TEMP 98; O2SAT 92
[2025-04-13 10:08] VITALS: BP 129/62; PULSE 98; RESP 17; TEMP 97.5; O2SAT 97
[2025-04-13 18:00] VITALS: BP 124/64; PULSE 65; RESP 16; TEMP 98.1; O2SAT 97
--- NOTE | 2025-04-13 20:55 | PROGRESS NOTE ---
Daily Progress Note Providers to CC ~ Antibiotic Timeout Antibiotic Ordered?: No Subjective The patient states that her weakness is improved except she still has left eyelid drag Objective Vital Signs Date Time Temp Pulse Resp B/P (MAP) Pulse Ox O2 Delivery O2 Flow Rate FiO2 04/13/25 18:00 98.1 65 16 124/64 (84) 97 Room Air Result Diagram: 04/13/25 0441 04/13/25 0441 Gen. No acute distress alert and oriented 4 HEENT left eyelid drag Lungs clear to ascultation bilaterally, no wheezes rales or rhonchi appreciated Heart normal sinus rhythm no murmurs rubs or clicks noted Abdomen soft nontender bowel sounds are normoactive Lower extremities no clubbing cyanosis, nor edema appreciated bilaterally Coagulation Studies Laboratory Tests Test 04/10/25 08:17 Prothrombin Time 11.0 SECONDS (9.0-12.0) INR International Normalized Ratio 1.1 INR Activated Partial Thromboplast Time 30 SECONDS (22-32) Coagulation Comments Problem\Assessment\Plan 69-year-old female history of remote Hodgkin's lymphoma, breast cancer status post resection, hypothyroidism presenting for blurry vision. She reports feeling generalized achiness and weakness. Patient is admitted for stroke-like symptoms which include drooping of left eyelid, double vision and difficulty in speaking and right 3rd and 4th finger weakness. Patient had tele neurology consultation done and we will follow the recommendation. Further workup ordered for possible stroke was unremarkable. 04/11/25-Patient is still having drooping of the left eyelid and difficulty in speaking and feeling weak. Patient needs PT evaluation in a.m.. I discussed patient's case with infectious disease specialist on-call doctor corey and she recommended to talk to pharmacist regarding immuno globulin availability in the hospital. 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 I spoke to pharmacist in [facility] regarding immune no globulin availability and ordered placed 04/12/25- Patient was seen in presence of her daughter and nursing staff today. Patient's speech is already improved since yesterday. She still has drooping of left eye . Patient is able to ambulate patient does have reflexes. I discussed the case with tele Neurology specialist Dr. Napier ( [phone]) in detail . She is still recommended to continue IV IG therapy . Also recommended Lumbar puncture: cell count, protein, glucose, gram stain, and culture Anti-GQ1b testing . Patient's current updated medical condition and care plan discussed with patient and her daughter in visit 04/13/25 the patient is left eyelid drag is still apparent however the rest of her weakness has improved including her speech- aspirin and Plavix were stopped since the patient has not had a CVA and lumbar puncture was held for a day since the patient is on these blood thinners # GERD Continue omeprazole # depression Continue sertraline # hypothyroidism Continue levothyroxine #Code status discussed with the patient patient wishes to stay limited code she is okay with chest compression but she does not want any intubation. Date of Service: Apr 13, 2025 Billing Provider: RADHA LOPEZ DO Common Visit Codes: [id number] INP/OBS CARE(HIGH) RADHA LOPEZ DO Apr 13, 2025 20:55
[2025-04-13 22:00] VITALS: BP 164/77; PULSE 88; RESP 15; TEMP 98.1; O2SAT 97
[2025-04-14 05:00] VITALS: BP 139/74; PULSE 84; RESP 14; TEMP 98.6; O2SAT 97
[2025-04-14 06:45] LABS: EOSINOPHILS # (AUTO) 0.1 X10'3 (0-0.9); EOSINOPHILS % (AUTO) 3.2 % (0-6); HEMATOCRIT 32.4 % (35.0-45.0); LYMPHOCYTES # (AUTO) 1.4 X10'3 (1.1-4.8); LYMPHOCYTES % (AUTO) 50.3 % (21-51); MEAN CORPUSCULAR HEMOGLOBIN 30.5 PG (27.0-31.0); MEAN CORPUSCULAR VOLUME 89.6 FL (78-98); MEAN PLATELET VOLUME 8.4 FL (7.4-10.4); MONOCYTES # (AUTO) 0.5 X10'3 (0-0.9); MONOCYTES % (AUTO) 19.1 % (2-12); NEUTROPHILS # (AUTO) 0.8 X10'3 (1.8-7.7); NEUTROPHILS % (AUTO) 26.4 % (42-75); PLATELET COUNT 271 X10'3 (140-440); RED BLOOD COUNT 3.62 X10'6 (4.20-5.60); RED CELL DISTRIBUTION WIDTH 13.5 % (11.5-14.5); WHITE BLOOD COUNT 2.9 X10'3 (4.5-11.0)
[2025-04-14 07:45] LABS: BANDS% (MANUAL) 1 % (0-10); EOSINOPHILS % (MANUAL) 2 % (0-6); LYMPHOCYTES % (MANUAL) 44 % (21-51); MONOCYTES % (MANUAL) 14 % (2-12); NEUTROPHILS % (MANUAL) 39 % (42-75); PLATELET ESTIMATE NORMAL; SMUDGE CELLS 1+; TOTAL CELLS COUNTED 100
[2025-04-14 10:00] VITALS: BP 135/69; PULSE 82; RESP 16; TEMP 98.3; O2SAT 97
[2025-04-14 18:00] VITALS: BP 130/70; PULSE 99; RESP 16; TEMP 97.5; O2SAT 93
--- NOTE | 2025-04-14 21:28 | PROGRESS NOTE ---
Daily Progress Note Providers to CC ~ Antibiotic Timeout Antibiotic Ordered?: No Subjective The patient's symptoms continue to improve and the patient passed the swallow evaluation today and no longer requiring dysphagia diet the patient has only really residual weakness is a left eyelid lag however this is improving as well Objective Vital Signs Date Time Temp Pulse Resp B/P (MAP) Pulse Ox O2 Delivery O2 Flow Rate FiO2 04/14/25 18:00 97.5 99 16 130/70 (90) 93 Room Air Result Diagram: 04/14/25 0558 04/13/25 0441 Gen. No acute distress alert and oriented 4 HEENT left eyelid drag Lungs clear to ascultation bilaterally, no wheezes rales or rhonchi appreciated Heart normal sinus rhythm no murmurs rubs or clicks noted Abdomen soft nontender bowel sounds are normoactive Lower extremities no clubbing cyanosis, nor edema appreciated bilaterally Coagulation Studies Laboratory Tests Test 04/10/25 08:17 Prothrombin Time 11.0 SECONDS (9.0-12.0) INR International Normalized Ratio 1.1 INR Activated Partial Thromboplast Time 30 SECONDS (22-32) Coagulation Comments Problem\Assessment\Plan 69-year-old female history of remote Hodgkin's lymphoma, breast cancer status post resection, hypothyroidism presenting for blurry vision. She reports feeling generalized achiness and weakness. Patient is admitted for stroke-like symptoms which include drooping of left eyelid, double vision and difficulty in speaking and right 3rd and 4th finger weakness. Patient had tele neurology consultation done and we will follow the recommendation. Further workup ordered for possible stroke was unremarkable. 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 Patient needs PT evaluation in a.m.. I discussed patient's case with infectious disease specialist on-call doctor corey and she recommended to talk to pharmacist regarding immuno globulin availability in the hospital. 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 I spoke to pharmacist in [facility] regarding immune no globulin availability and ordered placed 04/12/25- Patient was seen in presence of her daughter and nursing staff today. Patient's speech is already improved since yesterday. She still has drooping of left eye . Patient is able to ambulate patient does have reflexes. I discussed the case with tele Neurology specialist Dr. Napier ) in detail . She is still recommended to continue IV IG therapy . Also recommended Lumbar puncture: cell count, protein, glucose, gram stain, and culture Anti-GQ1b testing . Patient's current updated medical condition and care plan discussed with patient and her daughter in visit 04/13/25 the patient is left eyelid drag is still apparent however the rest of her weakness has improved including her speech- aspirin and Plavix were stopped since the patient has not had a CVA and lumbar puncture was held for a day since the patient is on these blood thinners 04/14/25 the patient's symptoms improved significantly today and passed the bedside swallow eval without any signs of dysphagia. Continues to experience some blurry vision in the left eye and left eye lid lag however this is improved as well from yesterday- that has elected both by the patient and myself that is a lumbar puncture be discontinued today non obtained since the patient has improved significantly- anticipate completion of IVIG in the evening of the and discharged the following morning # GERD Continue omeprazole # depression Continue sertraline # hypothyroidism Continue levothyroxine #Code status discussed with the patient patient wishes to stay limited code she is okay with chest compression but she does not want any intubation. # disposition and anticipate discharge in the morning of 04/16/2025 Date of Service: Apr 14, 2025 Billing Provider: RADHA LOPEZ DO Common Visit Codes: [id number] INP/OBS CARE(HIGH) RADHA LOPEZ DO Apr 14, 2025 21:28
[2025-04-14 22:00] VITALS: BP 144/63; PULSE 76; RESP 16; TEMP 97.7; O2SAT 98
[2025-04-15 05:27] LABS: BASOPHILS % (AUTO) 0.9 % (0-1); EOSINOPHILS # (AUTO) 0.2 X10'3 (0-0.9); HEMATOCRIT 31.8 % (35.0-45.0); HEMOGLOBIN 10.7 g/dl (12.0-16.0); LYMPHOCYTES # (AUTO) 1.9 X10'3 (1.1-4.8); LYMPHOCYTES % (AUTO) 49.2 % (21-51); MEAN CORPUSCULAR HEMOGLOBIN 30.1 PG (27.0-31.0); MEAN CORPUSCULAR HGB CONC 33.8 g/dL (33.0-36.5); MEAN PLATELET VOLUME 8.4 FL (7.4-10.4); MONOCYTES # (AUTO) 0.7 X10'3 (0-0.9); MONOCYTES % (AUTO) 18.1 % (2-12); NEUTROPHILS # (AUTO) 1.1 X10'3 (1.8-7.7); NEUTROPHILS % (AUTO) 27.8 % (42-75); PLATELET COUNT 274 X10'3 (140-440); RED BLOOD COUNT 3.57 X10'6 (4.20-5.60); RED CELL DISTRIBUTION WIDTH 13.8 % (11.5-14.5); WHITE BLOOD COUNT 3.8 X10'3 (4.5-11.0)
[2025-04-15 05:47] LABS: ALBUMIN 2.7 G/DL (3.4-5.0); ALBUMIN/GLOBULIN RATIO 0.5 (1.1-1.5); ALKALINE PHOSPHATASE 55 IU/L (46-116); ANION GAP 6 (8-16); ASPARTATE AMINO TRANSFERASE 58 U/L (10-37); BILIRUBIN,TOTAL 0.4 MG/DL (0.1-1.0); BLOOD UREA NITROGEN 19 MG/DL (7-18); BUN/CREATININE RATIO 19.4 (10.0-20.0); CALCIUM 8.4 MG/DL (8.5-10.1); CHLORIDE 106 MMOL/L (99-107); CREATININE 0.98 MG/DL (0.40-0.90); GLUCOSE 95 MG/DL (70-104); POTASSIUM 4.2 MMOL/L (3.5-5.1); SODIUM 140 MMOL/L (135-145); TOTAL CARBON DIOXIDE 28.5 MMOL/L (24-32); TOTAL PROTEIN 8.3 G/DL (6.4-8.2); eCRCL 45 ML/MIN; eGFR 56 ML/MIN
[2025-04-15 05:50] LABS: ALANINE AMINOTRANSFERASE 45 U/L (12-78)
[2025-04-15 06:00] VITALS: BP 139/69; PULSE 85; RESP 14; TEMP 97.8; O2SAT 100
[2025-04-15 07:20] VITALS: RESP 14; O2SAT 100
[2025-04-15 10:00] VITALS: BP 90/50; PULSE 86; RESP 16; TEMP 98.2; O2SAT 96
[2025-04-15 18:00] VITALS: BP 146/78; PULSE 90; RESP 18; TEMP 97.5; O2SAT 96
[2025-04-15 20:00] VITALS: RESP 18; O2SAT 96
--- NOTE | 2025-04-15 20:47 | PROGRESS NOTE ---
Daily Progress Note Providers to CC ~ Antibiotic Timeout Antibiotic Ordered?: No Subjective The patient is able to fully close her left eye today however she is not able to gaze laterally yet. Her symptoms of almost nearly resolved Objective Vital Signs Date Time Temp Pulse Resp B/P (MAP) Pulse Ox O2 Delivery O2 Flow Rate FiO2 04/15/25 10:00 98.2 86 16 90/50 (63) 96 Room Air Result Diagram: 04/15/25 0432 04/15/25 0432 Gen. No acute distress alert and oriented 4 HEENT left eyelid drag has resolved Lungs clear to ascultation bilaterally, no wheezes rales or rhonchi appreciated Heart normal sinus rhythm no murmurs rubs or clicks noted Abdomen soft nontender bowel sounds are normoactive Lower extremities no clubbing cyanosis, nor edema appreciated bilaterally Coagulation Studies Laboratory Tests Test 04/10/25 08:17 Prothrombin Time 11.0 SECONDS (9.0-12.0) INR International Normalized Ratio 1.1 INR Activated Partial Thromboplast Time 30 SECONDS (22-32) Coagulation Comments Problem\Assessment\Plan 69-year-old female history of remote Hodgkin's lymphoma, breast cancer status post resection, hypothyroidism presenting for blurry vision. She reports feeling generalized achiness and weakness. Patient is admitted for stroke-like symptoms which include drooping of left eyelid, double vision and difficulty in speaking and right 3rd and 4th finger weakness. Patient had tele neurology consultation done and we will follow the recommendation. Further workup ordered for possible stroke was unremarkable. 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 Patient needs PT evaluation in a.m.. I discussed patient's case with infectious disease specialist on-call doctor corey and she recommended to talk to pharmacist regarding immuno globulin availability in the hospital. 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 I spoke to pharmacist in [facility] regarding immune no globulin availability and ordered placed 04/12/25- Patient was seen in presence of her daughter and nursing staff today. Patient's speech is already improved since yesterday. She still has drooping of left eye . Patient is able to ambulate patient does have reflexes. I discussed the case with tele Neurology specialist Dr. Napier ( [phone]) in detail . She is still recommended to continue IV IG therapy . Also recommended Lumbar puncture: cell count, protein, glucose, gram stain, and culture Anti-GQ1b testing . Patient's current updated medical condition and care plan discussed with patient and her daughter in visit 04/13/25 the patient is left eyelid drag is still apparent however the rest of her weakness has improved including her speech- aspirin and Plavix were stopped since the patient has not had a CVA and lumbar puncture was held for a day since the patient is on these blood thinners 04/14/25 the patient's symptoms improved significantly today and passed the bedside swallow eval without any signs of dysphagia. Continues to experience some blurry vision in the left eye and left eye lid lag however this is improved as well from yesterday- that has elected both by the patient and myself that is a lumbar puncture be discontinued today non obtained since the patient has improved significantly- anticipate completion of IVIG in the evening of the and discharged the following morning 04/15/25 symptoms have almost nearly completely resolved accept for lateral gaze with the left eye # GERD Continue omeprazole # depression Continue sertraline # hypothyroidism Continue levothyroxine #Code status discussed with the patient patient wishes to stay limited code she is okay with chest compression but she does not want any intubation. # disposition and anticipate discharge in the morning of 04/16/2025 Date of Service: Apr 15, 2025 Billing Provider: RADHA LOPEZ DO Common Visit Codes: [id number] INP/OBS CARE(HIGH) RADHA LOPEZ DO Apr 15, 2025 20:47
[2025-04-15 22:00] VITALS: BP 136/76; PULSE 89; RESP 20; TEMP 98.1; O2SAT 97
[2025-04-16 06:00] VITALS: BP 111/60; PULSE 71; RESP 18; TEMP 98.9; O2SAT 97
[2025-04-16 06:48] LABS: ALANINE AMINOTRANSFERASE 62 U/L (12-78); ALBUMIN 2.8 G/DL (3.4-5.0); ALBUMIN/GLOBULIN RATIO 0.4 (1.1-1.5); ALKALINE PHOSPHATASE 60 IU/L (46-116); ANION GAP 6 (8-16); ASPARTATE AMINO TRANSFERASE 72 U/L (10-37); BILIRUBIN,TOTAL 0.4 MG/DL (0.1-1.0); BLOOD UREA NITROGEN 17 MG/DL (7-18); BUN/CREATININE RATIO 17.2 (10.0-20.0); CALCIUM 8.4 MG/DL (8.5-10.1); CHLORIDE 108 MMOL/L (99-107); CREATININE 0.99 MG/DL (0.40-0.90); GLUCOSE 89 MG/DL (70-104); POTASSIUM 4.3 MMOL/L (3.5-5.1); SODIUM 141 MMOL/L (135-145); TOTAL CARBON DIOXIDE 27.2 MMOL/L (24-32); TOTAL PROTEIN 9.2 G/DL (6.4-8.2); eCRCL 45 ML/MIN; eGFR 56 ML/MIN
[2025-04-16 07:35] VITALS: RESP 18; O2SAT 97
[2025-04-16 10:00] VITALS: BP 136/66; PULSE 89; RESP 19; TEMP 97.4; O2SAT 97
--- NOTE | 2025-04-16 20:47 | DISCHARGE SUMMARY ---
Discharge Summary Providers to CC ~ Discharge Summary Admission Diagnosis: blurry vision , stroke like symptoms Hospital Course DATE OF ADMISSION: 04/10/2025 DATE OF DISCHARGE: 04/16/2025 Discharge Diagnosis\\Comment: Guillain-Rathdrum variant, GERD, depression, hypothyroidism Operations\\Procedures: None Consultants: Dr. Reyes and tele neurologist Complications: None Condition on DC: Stable Continued Medications: Levothyroxine Sodium (Levothyroxine Sodium) 112 Mcg Tablet 1 TAB PO DAILY Omeprazole (Prilosec) 40 Mg Capsule 1 CAP PO DAILY Sertraline HCl (Sertraline HCl) 100 Mg Tablet 1 TAB PO DAILY Zolpidem Tartrate (Zolpidem Tartrate) 12.5 Mg Tab.mphase 1 TAB PO HS PRN for sleep Discharge Summary: The patient was admitted by Dr. Tracy Espinal with the following HPI:"69-year-old female history of remote Hodgkin's lymphoma, breast cancer status post resection, hypothyroidism presenting for blurry vision. She reports feeling generalized achiness and weakness. They are visiting for a wedding from [place]. She went yesterday to urgent care and tested positive for influenza. Throughout the day she started noticing droopiness in her left eye. She then awoke this morning with blurry vision and difficulty speaking. Her who was present at bedside feels that her speech is not clear. She also noticed that her right hand 3rd and 4th finger she is unable to open after making the fist. Feels that she has double vision. Denied any recent change in the medication denied use of any alcohol tobacco or any recreational drugs. she is able to ambulate She also reports having shortness of breath over the last month. She was hospitalized in [place] 3 weeks ago where she had echocardiogram performed which she reports was normal." The patient was evaluated by tele neurologist Dr. Makayla Baltazar who assessed that the patient has a Guillain-Rathdrum variant and started the patient on IVIG. The patient had negative CTA of the head and neck for any significant stenosis The patient has a negative MRI of the head for any infarct however the patient has a mild chronic microvascular changes that were appreciated The patient has a echocardiogram was unremarkable with an LVEF of 60-65% The patient's symptoms improved daily and on the the patient passed the swallow evaluation and has a regular diet Dr. Quyen Horowitz tele neurologist recommended a lumbar puncture with the following labs: cell count, protein, glucose, gram stain, and culture Anti-GQ1b testing The patient is improving enough by the that both myself and the patient both elected not to obtain a lumbar puncture. The patient is hypothyroid medication for levothyroxine and her antidepressant sertraline and omeprazole for GERD were continued during hospitalization. On day discharge the patient after five days of IVIG continued to have a left lateral palsy otherwise her symptoms had completely resolved. Gen. No acute distress alert and oriented 4 HEENT left eyelid drag has resolved, left lateral gaze palsy Lungs clear to ascultation bilaterally, no wheezes rales or rhonchi appreciated Heart normal sinus rhythm no murmurs rubs or clicks noted Abdomen soft nontender bowel sounds are normoactive Lower extremities no clubbing cyanosis, nor edema appreciated bilaterally The patient felt ready to be discharged and was medically cleared to be discharged on 04/16/2025 The patient was seen and evaluated on day of discharge. Time spent on discharge 35 minutes *Problems/Diagnosis: (1) Griffiths-Nunez variant Guillain-Rathdrum syndrome Total Time Spent on D/C: > 30 Minutes Date of Service: Apr 16, 2025 Billing Provider: RADHA LOPEZ DO Common Visit Codes: 87399-RSH/OBS DISCH DAY >30min RADHA LOPEZ DO Apr 16, 2025 20:45
== END 2025-04-16 11:15 | disposition home or self-care (01) | DRG 96 ==
LOC: ER 08:06 → ED HOLD 11:11 → EDBEDREQ 12:51 → ORTHO 4S 14:12
PROVIDERS: ADMIT Internal Medicine; ATTEND Internal Medicine
PROC: B3251ZZ Computerized Tomography (CT Scan) of Bilateral Common Carotid Arteries using Low Osmolar Contrast (ICD-10-PCS; principal; 2025-04-10)
PROC: B32G1ZZ Computerized Tomography (CT Scan) of Bilateral Vertebral Arteries using Low Osmolar Contrast (ICD-10-PCS; 2025-04-10)
PROC: B32R1ZZ Computerized Tomography (CT Scan) of Intracranial Arteries using Low Osmolar Contrast (ICD-10-PCS; 2025-04-10)
PROC: B3281ZZ Computerized Tomography (CT Scan) of Bilateral Internal Carotid Arteries using Low Osmolar Contrast (ICD-10-PCS; 2025-04-10)
DX: G61.0 Guillain-Barre syndrome (principal); E03.9 Hypothyroidism, unspecified; F32.A Depression, unspecified; K21.9 Gastro-esophageal reflux disease without esophagitis; H02.402 Unspecified ptosis of left eyelid; G47.00 Insomnia, unspecified; Z85.3 Personal history of malignant neoplasm of breast; Z85.71 Personal history of Hodgkin lymphoma; Z79.899 Other long term (current) drug therapy; J11.1 Influenza due to unidentified influenza virus with other respiratory manifestations
CPT/HCPCS: 36415; 70450; 70496; 70498; 70551; 71045; 80048; 80053; 80061; 82948; 83036; 84443; 85007; 85025; 85610; 85730; 86900; 86901; 87081; 92508; 92616; 93005; 93306; 93880; 96360; 96361; 97110; 97116; 97162; 97530; 99291; A6449; G0378; J1459; J1644; J7030; J7120